=== PATIENT | male | born 1985 | race Caucasian/White ===

== ENCOUNTER 2021-04-30 16:34 | Emergency (ER) | payer OTHER, SELFPAY ==
--- NOTE | ~2021-04-30 | US_ITS ---
EXAMINATION: US SCROTUM CLINICAL INFORMATION: Right testicular pain. Rule out torsion.. COMPARISON: None TECHNIQUE: A sonogram of the scrotum was performed assessing vasquez-scale appearance and color Doppler flow. Spectral Doppler analysis of the arterial and venous flow were performed in the testes bilaterally. FINDINGS: RIGHT: Right testicle measures 5 x 2.3 x 3.5 cm, volume 21.5 mL. There are several punctate coarse calcifications which represent testicular microlithiasis.. No other focal parenchymal lesions seen. Spectral Doppler analysis of the arterial and venous flow is equivocally slightly increased when compared with the left Right epididymal head is normal in size. No right hydrocele or varicocele is seen. There is a 5 mm epididymal head cyst. Right epididymal Doppler flow is normal. LEFT: Left testicle measures 3.9 x 2 x 2.8 cm, volume 11.5 mL. There are several punctate coarse calcifications which represent testicular microlithiasis.. No other focal parenchymal lesions seen. Spectral Doppler analysis of the arterial and venous flow is normal in the left testis. Left epididymal head is normal in size. No left hydrocele or varicocele is seen. Left epididymal Doppler flow is normal. US/US scrotum doppler IMPRESSION: There may be equivocal slight hypervascularity of the right testicle when compared to the left. This could be suggestive of orchitis, though again the finding is equivocal. 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 There is an otherwise unremarkable appearance of the testes bilaterally.
--- NOTE | ~2021-04-30 | US_ITS ---
EXAMINATION: US SCROTUM CLINICAL INFORMATION: Right testicular pain. Rule out torsion.. COMPARISON: None TECHNIQUE: A sonogram of the scrotum was performed assessing vasquez-scale appearance and color Doppler flow. Spectral Doppler analysis of the arterial and venous flow were performed in the testes bilaterally. FINDINGS: RIGHT: Right testicle measures 5 x 2.3 x 3.5 cm, volume 21.5 mL. There are several punctate coarse calcifications which represent testicular microlithiasis.. No other focal parenchymal lesions seen. Spectral Doppler analysis of the arterial and venous flow is equivocally slightly increased when compared with the left Right epididymal head is normal in size. No right hydrocele or varicocele is seen. There is a 5 mm epididymal head cyst. Right epididymal Doppler flow is normal. LEFT: Left testicle measures 3.9 x 2 x 2.8 cm, volume 11.5 mL. There are several punctate coarse calcifications which represent testicular microlithiasis.. No other focal parenchymal lesions seen. Spectral Doppler analysis of the arterial and venous flow is normal in the left testis. Left epididymal head is normal in size. No left hydrocele or varicocele is seen. Left epididymal Doppler flow is normal. US/US scrotum IMPRESSION: There may be equivocal slight hypervascularity of the right testicle when compared to the left. This could be suggestive of orchitis, though again the finding is equivocal. 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 There is an otherwise unremarkable appearance of the testes bilaterally.
[2021-04-30 16:39] VITALS: BP 131/96; PULSE 100; RESP 16; O2SAT 98; BMI 23.6
--- NOTE | 2021-04-30 18:37 | ED.LOWEXIN ---
HPI - Extremity Injury (Lower) General Chief Complaint: Extremity Injury, Lower Stated Complaint: Groin pain Time Seen by Provider: 04/30/21 18:32 Source: patient Mode of arrival: ambulatory Limitations: no limitations History of Present Illness HPI Narrative: 35-year-old male presents for right groin pain that occurred today. Patient is active and rode his bicycle for 22 miles today, which is a normal amount for him. He had new, and he had to adjust his testicles in the tight shorts. When he was done with his ride and he was shifting the shorts to take them off he lifted his right leg to pull off his sock and had extreme pain in his right groin. The pain felt like sharp pressure in his right inguinal area. The pain was 10/10 and he was nauseous and shaking from the pain. Patient is currently receiving physical therapy for bilateral adDuctor injury with hamstring and quadriceps strengthening. He took 600 mg of ibuprofen, and has no pain in his right groin during my interview. Related Data Previous Rx's Medication Instructions Recorded naproxen 500 mg tablet 500 mg PO BID 10 Days #20 tab 04/30/21 Allergies Allergy/AdvReac Type Severity Reaction Status Date / Time No Known Allergies Allergy Unverified 04/08/20 19:33 [No Known Allergies*] Review of Systems Constitutional: Constitutional: Denies body ache(s), Denies chills, Denies fatigue, Denies fever(s), Denies headache(s), Denies malaise and Denies weakness Eyes: Eyes: Denies diplopia ENT: Denies vertigo, Denies dizziness, Denies otalgia, Denies headache(s), Denies mouth pain, Denies post nasal drip, Denies sinus pain, Denies sinus pressure, Denies sore throat and Denies throat swelling Cardiovascular: Cardiovascular: Denies chest pain, Denies syncope, Denies leg edema, Denies lightheadedness, Denies Loss of Consciousness, Denies palpitations and Denies dyspnea Respiratory: Respiratory: Denies chest congestion, Denies cough and Denies dyspnea Gastrointestinal: Gastrointestinal: Reports abdominal pain, Denies hematochezia, Denies constipation, Denies diarrhea and Denies vomiting Genitourinary: Genitourinary: Denies hematuria, Denies genital lesions, Denies genital pain, Denies dysuria, Denies flank pain, Denies penile discharge, Denies scrotal swelling, Denies testicular mass, Reports testicular pain, Denies urinary frequency, Denies urinary hesitancy, Denies urinary incontinence and Denies urinary urgency Comments: Right testicular pain Musculoskeletal: Comments: Right groin pain radiating into right thigh Neurologic: Denies confusion, Denies vertigo, Denies dizziness, Denies syncope, Denies headache(s) and Denies weakness Psychiatric: Psychiatric: Denies anxiety, Denies confusion and Denies depression Endocrine: Endocrine: Denies fatigue and Denies palpitations Allergic/Immunologic: Allergic/Immunologic: Denies throat swelling [facility] Social History Social History Advance Directives: No Advance Directives Information Provided: No Physical Exam Vital Signs: Vital Signs: Last Vital Signs Pulse 100 04/30/21 16:39 Resp 16 04/30/21 16:39 BP 131/96 H 04/30/21 16:39 Pulse Ox 98 04/30/21 16:39 Body Mass Index 23.6 Const: General: No confusion Nutritional Appearance: well nourished Orientation/consciousness: No confusion Limitations: no limitations Eyes: Pupils: Equal, round and reactive pupils present Neck: Neck: Yes full ROM, Yes no lymphadenopathy and Yes supple Resp: Effort & Inspection: normal respiratory effort and able to speak in complete sentences Auscultation: clear to auscultation bilaterally, no crackles, no rales, no rhonchi and no wheezes Cardio: Rate: regular rate Rhythm: regular rhythm Heart sounds: S1 normal heart sound present and S2 normal heart sound present GI: Inspection: Yes normal to inspection Palpation (GI): Soft to palpation, nontender, no guarding and not rigid Percussion: Yes normal to percussion Auscultation: normal bowel sounds : Male General Exam: Yes other (Vitiligo of penis) Penis: circumcised, no ecchymosis, not edematous, not erythematous, no masses, no nodules, no papules, no pustules and no vesicles Meatus: meatus normal, no meatla discharge and No Blood at meatus present Scrotum: scrotum normal, no ecchymosis, not edematous, not erythematous, testes descended bilaterally, no hydroceles, no inguinal hernias, no masses, no scrotal swelling, no spermatoceles, no ulcerations and no varicoceles Testes: testicular lie normal, epididymides normal, no epidiymal tenderness, no testicular mass, no testicular swelling and no testicular tenderness Skin: General skin exam: no rashes or lesions noted Neuro: General: No confusion Cranial nerves: Yes Equal, round and reactive pupils present Extrem: General: Yes normal to inspection and Yes full ROM Psych: Appearance: grossly normal Affect: normal affect Attitude: cooperative Thought process: Normal thought process present Course Course Course Narrative: 35-year-old male presents for right groin pain and right testicle pain after lifting his right leg to remove very tight and stiff bicycle shorts. Patient reports he had 10/10 pain, but has no pain now. On exam, patient has a completely normal male genital exam, no epididymal tenderness, no testicular tenderness, no inguinal hernia. Patient is able to stand up and walk around without pain in his right leg. Ultrsound shows: There may be equivocal slight hypervascularity of the right testicle when compared to the left. This could be suggestive of orchitis, though again the finding is equivocal. 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 There is an otherwise unremarkable appearance of the testes bilaterally. No testicular torsion. Patient felt better with ibuprofen. I prescribed naproxen and had patient follow-up with their physical therapist. Gave return precautions. Patient verbalized agreement and understanding MDM - Extremity Injury (Lower) Lab Data Labs: Lab Results 04/30/21 Range/Units 19:42 Urine Color STRAW Urine Appearance CLEAR Urine pH 7.0 (5.0-8.0) Ur Specific Closplint <= 1.005 (1.005-1.025) Urine Protein NEG (NEG-TRACE) MG/DL Urine Glucose (UA) NEG (NEG) MG/DL Urine Ketones 5 (NEG) MG/DL Urine Blood NEG (NEG) Urine Nitrite NEG (NEG) Ur Leukocyte Esterase NEG (NEG) Discharge Plan Discharge Clinical Impression: Rt groin pain Patient Disposition: Home, Self-Care Instructions: Groin Strain (ED) Additional Instructions: Keep your appointment with your physical therapist on Sunday. Until then, do not exercises much is usually do. Any exercise hurts, stopped doing it. Please take naproxen as prescribed. Please do not take any ibuprofen, Aleve, Excedrin, or Motrin wire taking the naproxen. Please call your primary care provider for follow-up appointment from today's visit Prescriptions: New naproxen 500 mg tablet 500 mg PO BID 10 Days Qty: 20 RF: 0 Interventions: ED Discharge Assessment Last Done: 04/30/21 21:34 Discharge Date/Time: 04/30/21 21:36
[2021-04-30 19:49] LABS: Appearance Urine CLEAR; Color Urine STRAW; Glucose Urine UA NEG (NEG); Leukocyte Esterase Urine NEG (NEG); Nitrite Urine NEG (NEG); Specific Gravity - Urine <= 1.005 (1.005-1.025); Urine Blood NEG (NEG); Urine Ketones 5 MG/DL (NEG); Urine Protein NEG (NEG-TRACE)
== END 2021-04-30 21:36 | disposition home or self-care (01) ==
PROVIDERS: Physician Assistant; Emergency Provider Emergency Medicine Emergency Medical Services; PCP Internal Medicine
DX: R10.30 Lower abdominal pain, unspecified (principal); M79.604 Pain in right leg; R60.0 Localized edema; Z79.899 Other long term (current) drug therapy
CPT/HCPCS: 76870; 81003; 93975; 99283; 99284